=== PATIENT | male | born 2000 | race Caucasian/White ===

== ENCOUNTER 2022-07-05 05:49 | Emergency (ER) | payer MEDICAID ==
[~2022-07-05] VITALS: Ht 177.8 cm; Wt 100.6 kg
[2022-07-05] MEDS ORDERED: ACETAMINOPHEN 325MG TABLET PO ONE (07:00)
[2022-07-05] MEDS ORDERED: DEXAMETHASONE 4MG TABLET PO ONE (07:15)
[2022-07-05] MEDS ORDERED: IBUP-2029 MT (08:11)
[2022-07-05 08:25] VITALS: BP 123/77
[2022-07-05 08:42] LABS: MONOTEST NEGATIVE (NEGATIVE)
== END 2022-07-05 08:25 | disposition home or self-care (01) ==
LOC: ER 05:49
DX: J02.9 Acute pharyngitis, unspecified (principal); Z20.822 Contact with and (suspected) exposure to COVID-19
CPT/HCPCS: 86308; 87070; 87077; 87426; 87430; 99283; C9803; J8540